=== PATIENT | male | born 1960 | race Caucasian/White ===

== ENCOUNTER 2021-11-19 09:55 | Emergency (ER) | payer BC ==
[2021-11-19 10:05] VITALS: TEMP 97.9
[2021-11-19 12:07] LABS: Albumin 2.9 g/dL (3.5-5.0); Calcium 8.2 mg/dL (8.4-10.2); Potassium 4.1 mmol/L (3.5-5.1); Total Bilirubin 5.5 mg/dL (0.2-1.3); Total Protein 6.6 g/dL (6.3-8.2)
[2021-11-19 12:37] LABS: INR 2.1 (<1.2)
[2021-11-19 12:45] LABS: Basophils % (A) 1 %; Eosinophils # (A) 0.2 k/uL (0-0.7); Eosinophils % (A) 7 %; HCT 37.2 % (39.0-53.0); HGB 11.9 gm/dL (13.0-17.5); Lymphocytes # (A) 0.8 k/uL (1.0-4.8); Lymphocytes % (A) 24 %; MCH 35.2 pg (25.0-35.0); MCHC 31.9 g/dL (31.0-37.0); MCV 110.3 fL (80.0-100.0); Macrocytosis Marked; Mean Platelet Volume 10.5; Monocytes # (A) 0.2 k/uL (0-1.0); Monocytes % (A) 7 %; Neutrophils # (A) 1.9 k/uL (1.3-7.7); Neutrophils % (A) 59 %; RBC 3.37 m/uL (4.30-5.90); RDW 15.4 % (11.5-15.5); WBC 3.3 k/uL (3.8-10.6)
[2021-11-19 13:23] LABS: Platelet Count 60 k/uL (150-450)
[2021-11-19 13:24] LABS: Rouleaux Present
--- NOTE | 2021-11-19 13:33 | US ---
EXAMINATION TYPE: US abdomen limited DATE OF EXAM: 11/19/2021 COMPARISON: NONE CLINICAL HISTORY: ascites check. Known ascites, patient scheduled for paracentesis in [place] on M onday, too uncomfortable to fly home with this much fluid per patient. Moderate fluid seen within all four quadrants IMPRESSION: Moderate ascites
--- NOTE | 2021-11-19 13:33 | ED ---
General Adult HPI - General Chief complaint: Recheck/Abnormal Lab/Rx Stated complaint: Paracentesis Time Seen by Provider: 11/19/21 11:27 Source: patient Mode of arrival: ambulatory Limitations: no limitations - History of Present Illness Initial comments: Patient is a 61-year-old male with a past medical history of cirrhosis who presents seeking paracentesis. Patient states he is from [place] and has been visiting family in [place]. States he normally has paracentesis performed every 3-4 weeks. He will be getting a liver transplant in the next year. States paracentesis has not been performed since 10/24/21. 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 Patient and his seek paracentesis due to increased ascites. Patient states other than increased abdominal swelling he feels well. Denies fever, chills, shortness of breath, chest pain, abdominal pain, nausea, vomiting. They go back to [place] on Wednesday and are seeking treatment before plane ride. - Related Data Home Medications Medication Instructions Recorded Confirmed Bictegrav/Emtricit/Tenofov Ala 1 tab PO DAILY 11/19/21 11/19/21 [Biktarvy 50-200-25 mg Tablet] Furosemide [Lasix] 20 mg PO DAILY 11/19/21 11/19/21 Potassium Chloride ER [K-Dur 10] 10 meq PO BID 11/19/21 11/19/21 carvediloL [Coreg] 6.25 mg PO W/BRKFST 11/19/21 11/19/21 Allergies Allergy/AdvReac Type Severity Reaction Status Date / Time No Known Allergies Allergy Verified 11/19/21 13:33 Review of Systems ROS Statement: Those systems with pertinent positive or pertinent negative responses have been documented in the HPI. ROS Other: All systems not noted in ROS Statement are negative. Past Medical History Past Medical History: Liver Disease History of Any Multi-Drug Resistant Organisms: None Reported Past Surgical History: Appendectomy Additional Past Surgical History / Comment(s): paracentesis Past Psychological History: No Psychological Hx Reported Smoking Status: Never smoker Past Alcohol Use History: None Reported Past Drug Use History: None Reported General Exam Limitations: no limitations Head exam: Present: atraumatic, normocephalic, normal inspection Eye exam: Present: normal appearance, PERRL, EOMI, scleral icterus (moderate ). Absent: conjunctival injection, periorbital swelling Respiratory exam: Present: normal lung sounds bilaterally. Absent: respiratory distress, wheezes, rales, rhonchi, stridor Cardiovascular Exam: Present: regular rate, normal rhythm, normal heart sounds. Absent: systolic murmur, diastolic murmur, rubs, gallop, clicks GI/Abdominal exam: Present: soft, distended (moderate ascites ), normal bowel sounds, hernia (periumblical without erythema or tenderness ). Absent: tenderness, guarding, rebound, rigid Neurological exam: Present: alert, oriented X3, CN II-XII intact Psychiatric exam: Present: normal affect, normal mood Skin exam: Present: warm, dry, intact. Absent: normal color (jaundice), rash Course Vital Signs 11/19/21 11/19/21 10:02 13:55 Temperature 97.9 F Pulse Rate 65 79 Respiratory 16 18 Rate Blood Pressure 145/76 167/95 O2 Sat by Pulse 100 99 Oximetry Medical Decision Making - Medical Decision Making This is a 61-year-old male with cirrhosis seeking paracentesis. Laboratory studies obtained. Significant for increased bilirubin of 5.5, increased alk phos of 197, and increased AST at 78. INR is high at 2.1. Patient does not use blood thinners or aspirin. Per patient and his these values are somewhat near baseline. Abdominal ultrasound shows moderate ascites. Case discussed with interventional radiology. With patient's high INR and low platelets radiologist declines paracentesis procedure until INR is < 2. This was discussed with patient. Patient states he will have paracentesis done in [place] as he is heading back home on Wednesday. Return parameters discussed. Patient and verbalize understanding. Dr. Marcelino is my attending. - Lab Data Result diagrams: 11/19/21 11:45 11/19/21 11:45 Lab Results 11/19/21 11/19/21 11/19/21 Range/Units 11:45 11:45 11:45 WBC 3.3 L (3.8-10.6) k/uL RBC 3.37 L (4.30-5.90) m/uL Hgb 11.9 L (13.0-17.5) gm/dL Hct 37.2 L (39.0-53.0) % MCV 110.3 H (80.0-100.0) fL MCH 35.2 H (25.0-35.0) pg MCHC 31.9 (31.0-37.0) g/dL RDW 15.4 (11.5-15.5) % Plt Count 60 L (150-450) k/uL MPV 10.5 Neutrophils % 59 % Lymphocytes % 24 % Monocytes % 7 % Eosinophils % 7 % Basophils % 1 % Neutrophils # 1.9 (1.3-7.7) k/uL Lymphocytes # 0.8 L (1.0-4.8) k/uL Monocytes # 0.2 (0-1.0) k/uL Eosinophils # 0.2 (0-0.7) k/uL Basophils # 0.0 (0-0.2) k/uL Manual Slide Review Performed Macrocytosis Marked A Rouleaux Present PT 21.0 H (9.0-12.0) sec INR 2.1 H (<1.2) Sodium 140 (137-145) mmol/L Potassium 4.1 (3.5-5.1) mmol/L Chloride 108 H (98-107) mmol/L Carbon Dioxide 24 (22-30) mmol/L Anion Gap 8 mmol/L BUN 16 (9-20) mg/dL Creatinine 1.10 (0.66-1.25) mg/dL Est GFR (CKD-EPI)AfAm 83 (>60 ml/min/1.73 sqM) Est GFR (CKD-EPI)NonAf 72 (>60 ml/min/1.73 sqM) Glucose 92 (74-99) mg/dL Calcium 8.2 L (8.4-10.2) mg/dL Total Bilirubin 5.5 H (0.2-1.3) mg/dL AST 78 H (17-59) U/L ALT 39 (4-49) U/L Alkaline Phosphatase 197 H (38-126) U/L Total Protein 6.6 (6.3-8.2) g/dL Albumin 2.9 L (3.5-5.0) g/dL Disposition Clinical Impression: Ascites, History of abdominal paracentesis Disposition: HOME SELF-CARE Condition: Good Instructions (If sedation given, give patient instructions): Paracentesis (DC) Additional Instructions: Please follow up with hepatolgist as planned. Return to the emergency department experience new, concerning, or worsening symptoms. Is patient prescribed a controlled substance at d/c from ED?: No Referrals: None,Stated [Primary Care Provider] - 1-2 days Time of Disposition: 13:33
[2021-11-19 14:01] VITALS: BP 167/95; PULSE 79; RESP 18
== END 2021-11-19 13:55 | disposition home or self-care (01) ==
LOC: EC 09:55
DX: R18.8 Other ascites (principal); R85.5 Abnormal microbiological findings in specimens from digestive organs and abdominal cavity
CPT/HCPCS: 36415; 76705; 80053; 85025; 85610; 99284